=== PATIENT | male | born 1955 | race Caucasian/White ===

== ENCOUNTER 2022-07-02 06:57 | Observation (INO) ==
--- NOTE | 2022-06-11 09:04 | PAT Medication Instructions ---
Medication Instructions Date of Service June 11, 2022 Home Medications albuterol sulfate 90 mcg/actuation aerosol inhaler (Ventolin HFA) 2 puff inhalation QID PRN Shortness Of Breath amlodipine 10 mg tablet 10 mg PO QAM ascorbic acid (vitamin C) 500 mg tablet (Vitamin C) 500 mg PO QAM aspirin 81 mg capsule 81 mg PO QAM chlorthalidone 25 mg tablet 25 mg PO QAM cholecalciferol (vit D3) 5,500 unit-vit K2 200 mcg tablet 1 tab PO QAM ezetimibe 10 mg tablet (Zetia) 10 mg PO HS losartan 50 mg tablet 50 mg PO QAM omeprazole 20 mg tablet,delayed release 20 mg PO QAM potassium chloride 20 mEq oral packet 20 meq PO QAM umeclidinium 62.5 mcg-vilanterol 25 mcg/actuation powdr for inhalation (Anoro Ellipta) 1 inh inhalation QAM zinc 50 mg capsule 50 mg PO QAM DO NOT take the morning of surgery ascorbic acid (vitamin C) 500 mg tablet (Vitamin C) 500 mg PO QAM chlorthalidone 25 mg tablet 25 mg PO QAM cholecalciferol (vit D3) 5,500 unit-vit K2 200 mcg tablet 1 tab PO QAM losartan 50 mg tablet 50 mg PO QAM potassium chloride 20 mEq oral packet 20 meq PO QAM zinc 50 mg capsule 50 mg PO QAM Take morning of surgery With a small sip of water, OTHERWISE NOTHING TO EAT OR DRINK AFTER MIDNIGHT: albuterol sulfate 90 mcg/actuation aerosol inhaler (Ventolin HFA) 2 puff inhalation QID PRN Shortness Of Breath (use if needed; please bring rescue inhaler with you to hospital day of surgery if possible) amlodipine 10 mg tablet 10 mg PO QAM aspirin 81 mg capsule 81 mg PO QAM (continue as normal unless told otherwise by surgeon) omeprazole 20 mg tablet,delayed release 20 mg PO QAM umeclidinium 62.5 mcg-vilanterol 25 mcg/actuation powdr for inhalation (Anoro Ellipta) 1 inh inhalation QAM Take evening before surgery albuterol sulfate 90 mcg/actuation aerosol inhaler (Ventolin HFA) 2 puff inhalation QID PRN Shortness Of Breath (if needed) ezetimibe 10 mg tablet (Zetia) 10 mg PO HS Other Notes If you have any questions please call us at [phone] or [phone] or [phone] or [phone]
--- NOTE | 2022-06-16 08:48 | History & Physical Report ---
Date of Service June 16, 2022 date of surgery: 07/02/22 Procedure: Left Total Knee Arthroplasty Surgeon: Robby Ledesma Assessment & Plan (1) Arthritis of knee, left: Plan: Presents for preop evaluation prior to left total knee replacement, risk and benefits of the procedure discussed in detail he like to proceed with a left knee replacement. We will plan on overnight stay with discharge home with outpatient physical therapy. He did have issues with the oxycodone in the past and would prefer to use tramadol postoperatively. We will obtain medical clearance from prior to his surgery otherwise has no other questions or concerns. Placed on aspirin 81 mg twice a day for 1 month for DVT prophylaxis The risks and benefits have been discussed including, but not limited to, risk of infection, nerve injury, stiffness, loss of motion, failure to improve, etc. Reasonable outcomes and options of treatment were discussed. An explanation of appropriate alternatives to the procedure that may be advantageous were discussed and their risks and benefits, as well as the risks and benefits of not proceeding with treatment. I offered to answer any additional inquiries concerning the treatment involved. All the patient's questions were answered. The patient is agreeable, understanding of the treatment plan and alternatives, and wishes to proceed with the treatment plan. History of Present Illness Chief Complaint: left knee pain Primary Care Provider: ISABELLA PCP Jesse is a pleasant 67-year-old male who presents today for preop evaluation prior to his left total knee replacement. He states that he is been having pain in this knee for many years now which is gradually worsened to the point is affecting his daily activities including walking standing using stairs. He states he has a history of left knee arthroscopy x2 in the past as well as has had previous cortisone injection several years ago. He has pain, intermittent swelling as well as instability noted, rates his current pain as a 6 out of 10. At this point time is failed conservative measures and would like to proceed with a left knee replacement Allergies Allergy/AdvReac Type Severity Reaction Status Date / Time oxycodone Allergy breathing Verified 06/10/22 13:42 difficulty Home Medications Medication Instructions Recorded Confirmed Type albuterol sulfate 90 mcg/actuation 2 puff inhalation QID PRN 06/10/22 06/10/22 History aerosol inhaler (Ventolin HFA) Shortness Of Breath amlodipine 10 mg tablet 10 mg PO QAM 06/10/22 06/10/22 History ascorbic acid (vitamin C) 500 mg 500 mg PO QAM 06/10/22 06/10/22 History tablet (Vitamin C) aspirin 81 mg capsule 81 mg PO QA 06/10/22 06/10/22 History chlorthalidone 25 mg tablet 25 mg PO QAM 06/10/22 06/10/22 History cholecalciferol (vit D3) 5,500 1 tab PO QA 06/10/22 06/10/22 History unit-vit K2 200 mcg tablet ezetimibe 10 mg tablet (Zetia) 10 mg PO HS 06/10/22 06/10/22 History losartan 50 mg tablet 50 mg PO QA 06/10/22 06/10/22 History omeprazole 20 mg tablet,delayed 20 mg PO QA 06/10/22 06/10/22 History release potassium chloride 20 mEq oral 20 meq PO QAM 06/10/22 06/10/22 History packet umeclidinium 62.5 mcg-vilanterol 1 inh inhalation [facility] 06/10/22 06/10/22 History 25 mcg/actuation powdr for inhalation (Anoro Ellipta) zinc 50 mg capsule 50 mg PO QA 06/10/22 06/10/22 History Past Med/Surg History Medical History Hypertension Unspecified abnormalities of breathing "unspecified breathing disorder"; daily and prn inh; currently taking omeprazole as a preventative Viral illness 06/2022 fever, cough, fatigue, no covid testing to date Surgical History History of total right knee replacement Hx of colonoscopy Hx of laminectomy L2-S1 Social History Smoking Status: Former smoker Smoking End Date: 2001; Second Hand Exposure: Yes (growing up father smoked); Do You Dip or Chew Tobacco: No; Tobacco Cessation Education Requested by Patient: No Hx Alcohol Use: Yes Alcohol type: beer, wine and hard liquor Hx Substance Use: Yes Last Used Substance Other:: not for a long time Preferred Language: Yi Communication Ability: Effective Nail Maker Required: No Beliefs That Will Affect Care: None Current Living Situation: Significant Other Other Information That Helps Us Care for You: No Feels Safe at Home: Yes Safety Concerns: Feels Safe At This Time Assistive Devices: Glasses Review of Systems Review of Systems: All systems reviewed & are unremarkable except as noted in HPI & below Constitutional: no fever, no chills and no sweats Respiratory: no cough and no dyspnea Cardiovascular: no chest pain, no dyspnea and no orthopnea Gastrointestinal: no abdominal pain, no nausea and no vomiting Musculoskeletal: as per Subjective / HPI Physical Exam Physical Exam: HT: 6ft 1in WT: 108.86kg Constitutional: WD/WN, vitals as above no acute distress Respiratory: normal respiratory effort, lungs clear to auscultation no respiratory distress, no labored breathing and does not use accessory muscles Cardiovascular: RRR, no murmur, no edema Gastrointestinal (Abdomen): normal bowel sounds, soft, nontender, no hepatosplenomegaly Musculoskeletal: Knee: + knee abnormal to inspection (LEFT KNEE), + effusion (+1 effusion), + limited ROM of knee (ROM 0/3/110), + knee ROM with crepitation, + joint line tenderness (medial joint line) and + Yaniv's sign positive; no deformity, no skin erythema, no ecchymosis, no valgus laxity, no varus laxity, anterior drawer test negative, Ronel's sign negative and pivot shift test negative Results & Data Results & Data ([facility]) Diagnostic Findings Left Knee X-ray: left knee series confirm advanced degenerative changes to the left knee, greatest medial compartments and patellofemoral joint, showing joint space narrowing, osteophyte formation and subchondral sclerosis. no acute bony pathology noted.
--- NOTE | 2022-06-16 12:39 | Anesthesiology Consultation ---
Date of Service June 16, 2022 Assessment & Plan (1) Encounter for pre-operative examination: Chart Review Chart Review: Acceptable Risk for Surgery (pending PCP clearance/response to new onset DM ) and Patient seen in Pre Admission Testing - Awaiting PCP clearance scheduled 06/23/22 (will write note to PCP re: new onset DM). Pt and surgeon's office informed - Check BSG AM DOS Pt has had recollection during anesthesia/surgery with previous TKA- would not like to be aware during procedure -Due to unspecified breathing disorder- patient is not an ideal candidate for Same Day Joint program Per PAT appt on 06/16/22, patient denies any recent travel or large group activities. Pt had recent fever, cough, fatigue around 06/02/22- PCP aware- symptoms improving. Tested Covid positive 06/11/22 (will be 21 days from DOS). Pt can proceed without further Covid testing needed both preoperatively and DOS due to inpatient status. Pt is NOT vaccinated for Covid. Educated on importance of using Covid precautions one week prior to surgery Teaching & Discussion Pre-Anesthesia Teaching/Discussion Notes: Instructed NPO after midnight before surgery,except medications with 15 cc of water. Medication instructions provid ed according to the PAT guidelines. History Surgery Operation Date: 07/02/22 07:00 Proposed Procedures p Left Total Knee Arthroplasty - Robby Ledesma DO Height/Weight Height: 6 ft 1 in Weight: 108.4 kg Allergies Allergy/AdvReac Type Severity Reaction Status Date / Time oxycodone Allergy breathing Verified 06/10/22 13:42 difficulty Medications Home Medications Medication Instructions Recorded Confirmed Last Taken albuterol sulfate 90 mcg/actuation 2 puff inhalation QID PRN 06/10/22 06/10/22 Unknown aerosol inhaler (Ventolin HFA) Shortness Of Breath amlodipine 10 mg tablet 10 mg PO QAM 06/10/22 06/10/22 Unknown ascorbic acid (vitamin C) 500 mg 500 mg PO QAM 06/10/22 06/10/22 Unknown tablet (Vitamin C) aspirin 81 mg capsule 81 mg PO QAM 06/10/22 06/10/22 Unknown chlorthalidone 25 mg tablet 25 mg PO QAM 06/10/22 06/10/22 Unknown cholecalciferol (vit D3) 5,500 1 tab PO QAM 06/10/22 06/10/22 Unknown unit-vit K2 200 mcg tablet ezetimibe 10 mg tablet (Zetia) 10 mg PO HS 06/10/22 06/10/22 Unknown losartan 50 mg tablet 50 mg PO QAM 06/10/22 06/10/22 Unknown omeprazole 20 mg tablet,delayed 20 mg PO QAM 06/10/22 06/10/22 Unknown release potassium chloride 20 mEq oral 20 meq PO QAM 06/10/22 06/10/22 Unknown packet umeclidinium 62.5 mcg-vilanterol 1 inh inhalation QA 06/10/22 06/10/22 Unknown 25 mcg/actuation powdr for inhalation (Anoro Ellipta) zinc 50 mg capsule 50 mg PO QAM 06/10/22 06/10/22 Unknown Past Medical History Medical History Diabetes Pt unaware- noted on preop PAT testing 06/16/22- Hgb A1C 7.0 Hypertension Unspecified abnormalities of breathing "Unspecified breathing disorder"; follows with pulm in [facility]- Dr. Cottrell- daily and prn inh; currently taking omeprazole as a preventative Breathing stable Viral illness 06/2022 fever, cough, fatigue- tested Covid positive 06/11/22 Exercise / Class Metabolic Activity II 4-5 Yardwork/Stairs/Walk up hill (one flight of stairs - no chest pain or SOB) Past Surgical History Surgical History History of total right knee replacement Hx of colonoscopy Hx of laminectomy L2-S1 Past Anesthesia History No Hx of Anesthesia Complications and No Family Hx of Anesthesia Complications History of PONV No Hx of PONV and No Hx of Motion Sickness Social History Smoking Status: Former smoker tobacco type: cigarettes Do You Dip or Chew Tobacco: No Smoking End Date: 2001 Hx Alcohol Use: Yes Alcohol type: beer, wine and hard liquor alcohol intake frequency: 0-2 drinks per day Alcohol Intake Frequency Comment: 2-3 drinks/day Hx Substance Use: No substance use type: former substance user and marijuana Last Used Substance Other:: not for a long time Review of Systems Coughing,wheezing with URI- symptoms improving. Chronic MURPHY- stable Patient denies chest pain, shortness of breath at rest, reflux, palpitations. No hx of seizures, stroke, WI, apnea/snoring. No hx of blood clots or blood transfusions Physical Exam Vital Signs VITALS BP 126/66 P 74 TEMP 98.3 SP02 95% RESP 16 Constitutional no acute distress ENMT Mouth: no TMJ clicking Thyromental Distance: > or= 3.5 Finger Breadths (3.5) Mallampati Class: I Mouth / Teeth: 1. Missing Missing molars and side teeth Neck neck extension not limited Respiratory normal respiratory effort; no respiratory distress Auscultation: lungs clear to auscultation bilaterally; no wheezes Cardiovascular Rate/Rhythm: regular rate and regular rhythm Heart Sounds: no murmur Vessels: no carotid bruit Musculoskeletal Spine: no pain with cervical ROM Extremities: extremities normal to inspection Psychiatric Orientation: alert Lab Results Anesthesia Preop Results Results Anesthesia Widget: WBC 7.69 K/ul (4.8-10.8) 06/16/22 Hgb 14.2 g/dl (14.0-18.0) 06/16/22 Hct 41.1 % (42.0-52.0) L 06/16/22 Plt 221 K/uL (130-400) 06/16/22 Na 137 mmol/L (136-145) 06/16/22 K 3.4 mmol/L (3.5-5.1) L 06/16/22 Cl 98 mmol/L (98-107) 06/16/22 CO2 33 mmol/L (21-32) H 06/16/22 BUN 26 mg/dl (6-23) H 06/16/22 Creat 1.30 mg/dl (0.6-1.4) 06/16/22 Glucose Level 148 mg/dl (70-99(Fasting)) H 06/16/22 PT 10.9 Seconds (9.0-12.0) 06/16/22 PTT 26.8 Seconds (21.0-31.0) 06/16/22 INR 1.0 (0.9-1.1) 06/16/22 HA1c 7.0 % (4.5-5.6) H 06/16/22 Urine Color Dark Yellow 06/16/22 Urine Appearance Clear (Clear) 06/16/22 Urine pH 6.5 (4.5-7.5) 06/16/22 Urine Specific [place] 1.028 (1.000-1.030) 06/16/22 Urine Protein Negative (Negative) 06/16/22 Urine Glucose (UA) Negative (Negative) 06/16/22 Urine Ketones 1+ (Negative) H 06/16/22 Urine Blood Negative (Negative) 06/16/22 Urine Nitrite Negative (Negative) 06/16/22 Urine Bilirubin Negative (Negative) 06/16/22 Urine Urobilinogen Negative (Negative) 06/16/22 Urine Leukocyte Esterase Negative (Negative) 06/16/22 Blood Type A Positive 06/16/22 Antibody Screen NEGATIVE 06/16/22 Testing Electrocardiogram Date: 06/16/22 Findings: + NSR @ (76bpm ) Normal EKG per cardio Chest X-Ray Date: 06/11/22 Findings: + NAD 1 view CXR Echocardiogram Date: 07/15/19 EF: 55-60% LV Function: normal Other Findings: + LVH (Mild/concentric) Valvular Disease: + no significant valvular disease COVID-19 Risk Screen Screening Information COVID-19 Screen Date: 06/16/22 Exposure 21 Days Family/Household +COVID Last 21 Days: No Exposure 10 Days Any COVID Exposure Last 10 Days: No Symptoms Last 10 Days Experienced COVID Sx Last 10 Days: Yes Sx Experienced Last 10 Days: Cough, Fatigue and Fever or Chills Were You Tested for COVID: Yes Date and Place of Test: [facility] 06/11/22= positive for Covid Did You Notify Your Surgeon/PCP: Yes Did You Notify Your Surgeon/PCP Comment: Surgeon aware per patient Covid Sx 10 Day Pathway: If patient has symptoms, they should follow up with their PCP/surgeon to be COVID -19 tested and for further instructions related to their illness. Order COVID Testing COVID-19 Test Result pathway: * If the COVID Test is Negative, other risk factors are acceptable, and the patient is feeling well; proceed with procedure. * If the COVID-19 test is Positive: * Elective procedures will be cancelled/rescheduled per Policy 1096. * Urgent or Emergent procedures will need documentation that the procedure is medically necessary and precautions implemented per Policy 1096. Policies and Procedures Refer to Policy and Procedure 1096 for Initiation & Discontinuation of Transmission-Based Precautions for Confirmed and Suspected SARS-CoV-2 Infection which can be found on the Intranet in the Clinical Resources Manual by clicking on the link below: [email or web address] ion%[email or web address]#search=discontinuation%20of%20Transmission%2DBased + COVID 0-90 Days COVID + in Last 0-90 Days: Yes + COVID Test 0-10 Day: Yes Date/Place of COVID-19 Test: [facility] What were Your COVID-19 Symptoms: Fever, cough fatigue Currently Having Symptoms Related to COVID: Mild residual cough- much improved as of 06/16/22 +Covid 0-90 Day Pathway: Validate type of COVID-19 test (must secure test results for patient chart) * The patients test result MUST be a NAAT (i.e., molecular test not an antigen test). * NO other COVID-19 testing needed pre-op or day of surgery inside the 90 day window if prior positive test is acceptable per hospital Policy. Note: Home tests or antigen tests are NOT accepted per hospital policy. Provider to place an order for a LIAM (i.e., molecular test not an antigen test). Then proceed to the appropriate pathway based on the testing results. Elective Case +COVID-19 in the last 0-10 Days * Cancel/reschedule using Policy 1096. * Reschedule procedure 11 days if asymptomatic. * Reschedule procedure 15 days if mild symptoms. * Reschedule procedure 21 days if moderate to severe symptoms. Elective Case +COVID-19 in the last 11-90 Days * Proceed with procedure according to Policy 1096 * Reschedule procedure 11 days if asymptomatic. * Reschedule procedure 15 days if mild symptoms. * Reschedule procedure 21 days if moderate to severe symptoms. Urgent or Emergent Case * Provider will provide medical necessity statement in the H&P and patient will be scheduled on the (+) COVID/PUI pathway per hospital policy. Policies and Procedures Refer to Policy and Procedure 1096 for Initiation & Discontinuation of Transmission-Based Precautions for Confirmed and Suspected SARS-CoV-2 Infection which can be found on the Intranet in the Clinical Resources Manual by clicking on the link below: [email or web address] [email or web address] [email or web address] %[email or web address]#search=discontinuation%20of%20Transmission%2DBased Were You Hospitalized due to COVID-19 and Where: No COVID Testing Site COVID-19 Preop/Pre-Procedure Testing Site: [facility] (06/11/22 positive ) Risk Plan COVID Risk Plan: Last 10D +CoV Test Patient Education COVID Preop Screening Education Complete: Yes
[~2022-07-02 06:57] MED LIST: ACETAMINOPHEN 500 MG TAB PO SCH; BUPIVACAINE 0.25% 30 ML VIAL ONE; BUPIVACAINE 0.5 % 5 MG/1 ML PF 10ML VIAL ONE; CeleBREX 200 MG CAP PO SCH; FAMOTIDINE 20 MG TAB PO SCH; GABAPENTIN 300 MG CAP PO SCH; LR 500ML BOLUS, THEN 15ML/HR IV SCH; METOCLOPRAMIDE HCL 10 MG TABLET PO SCH; ROPIVACAINE 0.5% HCL/PF 150 MG, BUPIVACAINE 0.75% MPF 20 ML, EPINEPHrine 30MG/30ML (OR ... INSTIL SCH; TRANEXAMIC ACID 1,000 MG **IV Intra-op IV SCH; TRANEXAMIC ACID 1,000 MG **IV Pre-op IV SCH; ceFAZolin 2000MG 2,000 MG/15 ML SYR IV SCH; dexAMETHasone 4 MG TAB PO SCH
[2022-07-02] MEDS ORDERED: MIDAZOLAM HCL 1 MG/ML 2ML VIAL ONE ×2 (07:21→09:44)
[2022-07-02] MEDS ORDERED: fentaNYL citrate 100 MCG/2 ML VIAL ONE (07:21)
[2022-07-02] MEDS ORDERED: ePHEDrine sulfate 50 MG/ML AMP IV PRN (08:32)
[2022-07-02] MEDS ORDERED: fentaNYL citrate 100 MCG/2 ML VIAL IV PRN (08:32)
[2022-07-02] MEDS ORDERED: ATROPINE SULFATE 0.1 MG/ML 10ML SYR IV PRN (08:32)
[2022-07-02] MEDS ORDERED: ONDANSETRON INJ 2 MG/ML 2 ML VIAL IV PRN ×2 (08:32→12:17)
--- NOTE | 2022-07-02 08:44 | History & Physical Bridge Note ---
Date of Service July 02, 2022 History & Physical Bridge Note I have examined the patient, reviewed the History & Physical and in the interval since the performance of the History & Physical I have noted the following changes of clinical significance: no changes noted
[2022-07-02] MEDS ORDERED: ORTHO JOINT ANESTHETIC ONE (09:34)
[2022-07-02] MEDS ORDERED: PROPOFOL IV EMULSION 10 MG/ML 20 ML VIAL IV ONE ×2 (09:44→10:48)
--- NOTE | 2022-07-02 10:54 | Operative Report ---
Post Operative Report Pre & Post Diagnosis Operation Date: 07/02/22 09:20 Pre-Op Diagnosis: Left Knee Osteoarthritis Post-Op Diagnosis: Left Knee Osteoarthritis I identified the patient and participated in the time-out.: Yes Procedure Operation Date: 07/02/22 09:20 Actual Procedures p Left Total Knee Arthroplasty, Cemented utilizing [employer] journey 2 patient matched size femur 7 tibia 7 poly 13 patella 38 rodri Ledesma DO Surgeon Robby Ledesma DO Protective Service Specialist EARLE Costello Estimated Blood Loss 5 Findings Consistent with Post-Op Diagnosis Patient presents with severe end-stage tricompartmental DJD left knee no response to conservative management patient has eburnated [id number] 10 degree flexion contracture varus alignment subchondral sclerosis marginal osteophytes moderate to large effusion Specimens Bone card Drains Medium bore Hemovac Anesthesia Type MAC Spinal Regional Complications none Disposition Accompanied Patient To Recovery: No Disposition: Recovery Room Indications Patient has after failed attempted conservative management occluding physical therapy anti-inflammatories relative rest activity modification corticosteroid injection viscosupplementation Description of Procedure After proper prepping and draping of the left lower extremity anterior midline incision was made over the region of the extensor extensor mechanism after meticulous hemostasis was obtained and maintained in subcutaneous tissues a medial parapatellar incision was made The patella was subluxed lateralward the medial lateral gutter were cleaned from any hypertrophic synovitis and scar tissue of the distal femoral block was placed and the distal femoral osteotomy cut was made subsequently the chamfers anterior and posterior osteotomy cuts were made utilizing the 4-in-1 block the tibia was subsequently subluxed anteriorward medial and ateral meniscal remnants were excised in their entirety remnants of the anterior and posterior cruciate ligaments were excised in their entirety excellent exposure of the proximal tibia was obtained the tibial osteotomy guide was placed on the proximal tibial osteotomy cut was made once again the knee was irrigated with copious amounts of sterile saline solution the patella was subsequently everted lateralward thickened scar tissue around the patella was removed the patella was subsequently cut utilizing a freehand technique and was drilled prepared for final preparation and placement of patella socially flexion-extension gaps were checked and the equal and symmetric trials were placed to the appropriate femoral and tibial trials with poly-spacer being placed for equal flexion and extension gaps and full range of motion including extension to 0 and flexion to 140 the trial components after having been taken to recovery range of motion was subsequently removed meticulous hemostasis was obtained and maintained subsequently a knee block injection of joint cocktail including ropivacaine 0.5% 150 mg. Bupivacaine 0.5% epinephrine 1-200,030 mL's toradol 30 mg dexamethasone 4 mg ketamine 10 mg clonidine 100 micrograms normal saline solution 30 mg was infiltrated into the soft tissues of the posterior knee medial lateral gutters and periosteal synovium special attention was paid to protect neurovascular structures at all times subsequently trial components having been removed the knee was irrigated with sterile saline solution. debris was removed the proximal tibia was subsequently prepared and was made ready for the placement of the tibial component tibial component was also cemented and tamped into position the femoral component was subsequently placed and cemented in the position the patellar component was subsequently cemented in position because hemostasis once again obtained and maintained wound having been thoroughly irrigated with debridement and debridement lavage was performed as well as a medial parapatellar incision closed with #1 Vicryl in interrupted fashion subcutaneous was closed with #2 Vicryl skin was closed with skin clips. PA-C was necessary for prepping and drapping as well as wound closure of deep fascia Sub cutaneous tissue and skin and was necessary for the case. A sterile compressive dressing was placed patient was taken to recovery in stable condition of report dictated by Baltazar I attest to the content of the Intraoperative Record and any orders documented therein. Any exceptions are noted below.Due to the complex nature of the procedure, the entire surgery was performed with the operational assistance of EARLE Costello. The assistant winemaker, under direct supervision, was involved in the actual performance of all aspects of the surgical procedure including hemostasis, tissue retraction and incision, instrument management, patient positioning, and wound closure. I attest to the content of the Intraoperative Record and any orders documented therein. Any exceptions are noted below.
[2022-07-02] MEDS ORDERED: NALOXONE HCL 0.4 MG/1 ML VIAL/CARP IV PRN (12:17)
[2022-07-02] MEDS ORDERED: MAGNESIUM HYDROXIDE SUSP 30 ML UDC PO PRN (12:17)
[2022-07-02] MEDS ORDERED: METOCLOPRAMIDE HCL INJ 5 MG/ML 2 ML VIAL IV PRN (12:17)
[2022-07-02] MEDS ORDERED: diphenhydrAMINE Capsule 25 MG CAP PO PRN (12:17)
[2022-07-02] MEDS ORDERED: HYDROmorphone INJ 1 MG/ML SYRINGE IV PRN (12:17)
[2022-07-02] MEDS ORDERED: bisacodyL 10 MG SUPP PR PRN (12:17)
[2022-07-02] MEDS ORDERED: ALBUTEROL HFA 8 GM INHALER INH PRN (12:17)
--- NOTE | 2022-07-02 12:30 | XRay Report ---
XR knee LT 1 or 2V routine HISTORY: 67 years-old Male Surgical Post Op left knee total joint arthroplasty COMPARISON: 09/14/2012 TECHNIQUE: 2 views of the left knee FINDINGS: Total joint arthroplasty with patellar resurfacing. Surgical drainage catheter is in place. Expected postoperative soft tissue swelling with deep tissue air. No acute fracture, dislocation or opaque for eign body. Arterial calcifications. IMPRESSION: Total joint arthroplasty with expected postoperative changes. ACT 112: Negative or not required by law. The above report was generated using voice recognition software. It may contain grammatical, syntax o r spelling errors. Electronically signed by: Quirino Chamorro M.D. 07/02/2022 12:29 PM
[2022-07-02] MEDS: SODIUM CHLORIDE 0.9% 1000ML 1,000 ML IV SCH (14:58)
[2022-07-02] MEDS: KETOROLAC TROMETHAMINE 15 MG/ML VIAL IV SCH ×2 (14:58→17:51)
[2022-07-02] MEDS: ACETAMINOPHEN 500 MG TAB PO SCH ×2 (14:58→20:50)
--- NOTE | 2022-07-02 15:34 | Anesthesiology Progress Note ---
Date of Service July 02, 2022 Anesthesia Post Procedure Vital Signs Vital Signs: Temp Pulse Pulse Resp BP Pulse Ox O2 Del Method 07/02/22 14:21 36.8 C 90 18 128/70 94 Room Air 07/02/22 14:00 83 16 125/72 95 Room Air 07/02/22 13:30 84 16 121/61 95 Room Air 07/02/22 13:00 84 14 104/86 95 Room Air 07/02/22 12:30 83 16 141/89 H 95 Room Air 07/02/22 12:15 77 12 126/88 97 Room Air 07/02/22 12:00 76 15 134/63 96 Room Air 07/02/22 11:50 77 19 121/64 92 Room Air 07/02/22 11:40 36.4 C L 77 15 130/64 100 Oxymask 07/02/22 11:30 78 19 127/66 100 Oxymask 07/02/22 11:23 36.3 C L 80 19 116/63 96 Oxymask 07/02/22 07:26 36.8 C 79 20 141/81 H 95 Room Air O2 Flow Rate 07/02/22 14:21 07/02/22 14:00 07/02/22 13:30 07/02/22 13:00 07/02/22 12:30 07/02/22 12:15 07/02/22 12:00 07/02/22 11:50 07/02/22 11:40 8 07/02/22 11:30 8 07/02/22 11:23 8 07/02/22 07:26 Pain Intensity Bilateral Knee: Pain Intensity: 3 Transfer of Care Handoff Completed per policy Notes Mental Status: alert / awake / arousable and participated in evaluation Patient Amnestic to Procedure: Yes Nausea / Vomiting: adequately controlled Pain: adequately controlled Airway Patency, RR, SpO2: stable & adequate BP & HR: stable & adequate Hydration State: stable & adequate Neuraxial Anesthesia: was administered and sensory block is resolving Anesthetic Complications: no major complications apparent and Pt Satisfied with anesthetic care
[2022-07-02] MEDS: ceFAZolin 2000MG 2,000 MG/15 ML SYR IV SCH (17:31)
[2022-07-02] MEDS: DOCUSATE SODIUM 100 MG CAP PO SCH (20:50)
[2022-07-02] MEDS: ASPIRIN 81 MG ECTAB PO SCH (20:50)
[2022-07-02] MEDS ORDERED: SENNA 8.6 MG TAB PO SCH (21:00)
[2022-07-02] MEDS ORDERED: EZETIMIBE 10 MG TABLET PO SCH (21:00)
[2022-07-02] MEDS: traMADol HCL 50 MG TABLET PO PRN (22:16)
[2022-07-03] MEDS: KETOROLAC TROMETHAMINE 15 MG/ML VIAL IV SCH ×2 (00:54→05:55)
[2022-07-03] MEDS: ceFAZolin 2000MG 2,000 MG/15 ML SYR IV SCH (00:54)
[2022-07-03] MEDS: SODIUM CHLORIDE 0.9% 1000ML 1,000 ML IV SCH (01:13)
[2022-07-03] MEDS: ACETAMINOPHEN 500 MG TAB PO SCH ×2 (05:55→13:00)
--- NOTE | 2022-07-03 07:14 | Discharge Summary ---
Date of Service date of discharge: July 03, 2022 date of admission: 07-02-22 Admission HPI Per Admitting Provider Jesse is a pleasant 67-year-old male who presents today for preop evaluation prior to his left total knee replacement. He states that he is been having pain in this knee for many years now which is gradually worsened to the point is affecting his daily activities including walking standing using stairs. He states he has a history of left knee arthroscopy x2 in the past as well as has had previous cortisone injection several years ago. He has pain, intermittent swelling as well as instability noted, rates his current pain as a 6 out of 10. At this point time is failed conservative measures and would like to proceed with a left knee replacement Principal Diagnosis left knee osteoarthritis Discharge Exam Vital Signs Temp 36.6 C 07/03/22 03:14 Pulse 74 07/03/22 03:14 Resp 15 07/03/22 03:14 BP 150/78 H 07/03/22 03:14 Pulse Ox 95 07/03/22 03:14 O2 Del Method Room Air 07/03/22 03:14 O2 Flow Rate 8 07/02/22 11:40 Intake & Output 07/02/22 07/03/22 07/03/22 18:59 06:59 18:59 Intake Total 1300 / 3450 2150 / 3450 Output Total 435 / 1835 1400 / 1835 Balance 865 / 1615 750 / 1615 Weight 107.161 kg Intake: IV 200 / 1200 1000 / 1200 Lactated Ringer's 1,000 ml @ 15 0 / 0 mls/hr IV .Q24H NORM Rx#: [id number] Sodium Chloride 0.9% 1000ML 1, 1000 / 1000 000 ml @ 100 mls/hr IV .Q10H NORM Rx#:[id number] Tranexamic Acid / 0.7% NaCl 1, 200 / 200 000 mg In 100 ml @ 600 mls/hr IV TODAY@0600 NORM Rx#:[id number] IV Perioperative 1100 / 1100 Oral 1150 / 1150 Output: Urine 400 / 1600 1200 / 1600 Estimated Blood Loss 5 / 5 Drain Output 30 / 230 200 / 230 Left Knee Hemovac 30 / 230 200 / 230 Other: # Unmeasured Voids 1 Weight Measurement Method Standing Scale Musculoskeletal left knee: NVDI, calf SNT, negative juancarlos sign. DP palpable, able to wiggle toes/ankle movement without difficulty. JAKUB dressing clean dry and intact. Discharge Data Allergies Allergy/AdvReac Type Severity Reaction Status Date / Time oxycodone Allergy breathing Verified 06/10/22 13:42 difficulty Procedures Performed Operation Date: 07/02/22 09:20 Actual Procedures p Left Total Knee Arthroplasty, Cemented(Left) - Robby Schwartz DO Ordered Studies 07/02/22 05:00 US - OR guided needle placemen Routine Hospital Course (1) History of total left knee replacement: POD #1 s/p left TKA pt/ot dvt proph with DARIUS/SCD/ASA plan for d/c home with HHPT Total Time Total Time Spent Total Time Spent (In Minutes): 20 Discharge Plan Discharge Items Patient Disposition: Home - Home Health Services Reason For Visit: Left Knee Osteoarthritis Discharge Diagnosis: left total knee replacement Activity: Per Instructions section Lifting: Wait until after follow-up appointment Weightbearing Comment: WBAT with walker Non-emergency contact: Surgeon Call non-emergency contact if: you have any medication questions, your temperature is above 101, your wound has increased redness, your wound has increased drainage and your wound pain has increased Follow-up/Referrals: Robby Lake, D.O. [Primary Care Provider] - Diet: Regular Addtl Attending Provider Instructions: ACTIVITY RECOMMENDATIONS: SELF CARE INSTRUCTIONS AFTER TOTAL KNEE REPLACEMENT A. You may need to continue a physical therapy program after discharge from the hospital. There are several options available to you. Your doctor will assist you in selecting the best one for you. 1. An out-patient facility 2 to 3 times a week for therapy or home therapy. 2. Continue working on all exercises taught to you in the hospital. Your goals should be to increase bending of your knee to 90 degrees and beyond and to fully straighten your knee. B. You may progress at your own pace from walking with a walker or crutches to a cane; then to no assistive devices. C. Make walking a part of your daily routine. Be up as much as comfortable with rest periods throughout the day. Rest with leg elevation is very important. Use the ice wrap frequently for the first 3-4 weeks. D. There are no restrictions on activities. You may ride in a car, shop, participate in bundle shaker and all social activities. E. Wear the long elastic stockings (DARIUS hose) 20 hours a day for 2 weeks after surgery. They can be removed several times a day for laundering and for a bath. F. You may shower, no tub baths until cleared by your doctor. SPECIAL CARE INSTRUCTIONS: VERY IMPORTANT TO READ AND REVIEW A. There are a few signs you need to watch for after you are home. Call [facility] [place] if you notice any of the followin. Increased severe knee pain. Some pain is expected especially when you exercise. 2. Increased swelling in your leg or knee; pain or swelling of the calf muscle in either lower leg. 3. Any fluid drainage from the incision. 4. Shortness of breath or chest pain. B. Please call [facility] at if you have any concerns or questions about your operation or recovery. The doctor or his nurse will return your call promptly. C. You must take antibiotics before dental work, bladder, bowel or other surger y. Your doctor will provide you with a permanent care to carry describing this precaution. IMPORTANT: * REMEMBER TO TAKE ASPIRIN, 81 MG, TWICE DAILY FOR 4 WEEKS UNLESS OTHERWISE DIRECTED. THIS IS YOUR BLOOD THINNER. * HIGH RISK PATIENTS MAY BE PRESCRIBED A STRONGER BLOOD THINNER. THIS WILL BE PROVIDED AT DISCHARGE. * CALL IF INCREASED PAIN, REDNESS, DRAINAGE OR FEVER GREATER THAT 101. * WEAR DARIUS HOSE 20 HOURS PER DAY FOR 2 WEEKS. * DRESSING INSTRUCTIONS * JAKUB Dressing- This is a large suction dressing covering your incision. This will help pull any excess drainage from the wound and allow your incision to heal properly. You may shower with this if you can keep the unit outside of the shower. If any bleeding or leakage is noted please call your doctor's office. This will remain on your incision for 7 days and then should be removed. This can be done yourself or by the home nursing staff if applicable. The entire unit is disposable once removed. Once removed, keep incision clean and dry. If redness or drainage is noted, please call your surgeon. ONCE JAKUB IS REMOVED, FOLLOW THESE INSTRUCTIONS: DERMABOND Prineo- This is a mesh tape dressing that is covered with glue. It should remain in place until the incision is properly healed, usually 10-14 days. This dressing is designed to naturally slough off. You may trim the excess mesh tape as it peels off. Incision may be briefly wet in a shower. Dry immediately by blotting with a clean, dry towel. Do not bath or swim until instructed by your doctor. Do not scratch, rub, or pick at the dressing. Do not apply any topical ointments or lotions until dressing is completely removed and/or instructed by your doctor. There may be a small piece of suture material at one end of your incision. Do not pull or trim this. If it is bothersome or catching on clothing, you may cover it with a band-aid. IF INCISION IS LEAKING THROUGH DRESSING, CALL THE OFFICE . FOLLOW UP VISIT: If appointment is not already scheduled: Please call [facility] [place] to make a follow-up appointment for 2 weeks after your surgery at . Pending Studies at Discharge: No Stand-Alone Forms: My [facility] Medications and DC Order Prescriptions: New celecoxib [Celebrex] 200 mg Capsule 200 mg PO BID 30 Days Qty: 60 0RF aspirin 81 mg Tablet,Delayed Release (Dr/Ec) 81 mg PO BID 30 Days Qty: 60 0RF tramadol 50 mg Tablet 50 - 100 mg PO Q6H PRN (Reason: pain) Qty: 30 0RF Rx Instructions: ongoing therapy, supervising dr cinthya schwartz. max 6 tabs in 24 hours acetaminophen [Tylenol Extra Strength] 500 mg Tablet 1,000 mg PO Q8 21 Days Qty: 126 0RF docusate sodium 100 mg Capsule 100 mg PO BID 10 Days Qty: 20 0RF cefadroxil 500 mg capsule 500 mg PO BID 14 Days Qty: 28 0RF Continued losartan 50 mg Tablet 50 mg PO QAM chlorthalidone 25 mg Tablet 25 mg PO QAM potassium chloride 20 mEq Packet 20 meq PO QAM ascorbic acid (vitamin C) [Vitamin C] 500 mg Tablet 500 mg PO QAM amlodipine 10 mg Tablet 10 mg PO QAM albuterol sulfate [Ventolin HFA] 90 mcg/actuation Hfa Aerosol Inhaler 2 puff INHALATION QID PRN (Reason: Shortness Of Breath) ezetimibe [Zetia] 10 mg Tablet 10 mg PO HS zinc 50 mg Capsule 50 mg PO QAM omeprazole 20 mg Tablet,Delayed Release (Dr/Ec) 20 mg PO QAM Anoro Ellipta 62.5-25 mcg/actuation Blister With Device 1 inh INHALATION QAM vitamin D3-vitamin K2 5,500-200 unit-mcg Tablet 1 tab PO QAM Discontinued aspirin 81 mg Capsule 81 mg PO QAM Admission Data Admit Date/Time: 07/02/22 11:28 Attending Provider: Robby Schwartz Admit Provider: Robby Schwartz Primary Care Provider: Robby Lake
--- NOTE | 2022-07-03 07:36 | Orthopedic Progress Note ---
Date of Service July 03, 2022 Assessment & Plan (1) History of total left knee replacement: Plan: POD #1 s/p left TKA -PT/OT -dvt proph with DARIUS leung,SCDs, and ASA -Pain regime as written -Remove drain prior to d/c -Plan for d/c home today with home health Admission and Anticipated Discharge Date Admission Date: July 02, 2022 Subjective Pt is POD#1 s/p Left TKA. Doing well this morning, states pain is well controlled on current regime. Denies CP, SOB, fevers or chills Has been able to ambulate with his walker in room without issue. Review of Systems Constitutional: no fever, no chills and no body aches Respiratory: no cough, no dyspnea and no problem reported Cardiovascular: no chest pain, no dyspnea and no syncope Gastrointestinal: no abdominal pain, no nausea and no vomiting Physical Exam Physical Exam: LLE with dressing and drain in place and is c/d/i. Able to wiggle toes and full ROM of left ankle without issue, nontender to left calf and compartments are soft, palpable pulses, NVI. Results & Data ([facility]) Vital Signs (Past 12 Hours) Vital Signs Temp Pulse Resp BP Pulse Ox O2 Del Method 07/03/22 03:14 36.6 C 74 15 150/78 H 95 Room Air 07/02/22 23:42 36.6 C 84 15 131/66 97 Room Air Laboratory Results Laboratory Results POC Glucose 142 mg/dl (70-99) H 07/02/22 11:25 Impressions Knee X-Ray 07/02/22 11:28 XR knee LT 1 or 2V routine HISTORY: 67 years-old Male Surgical Post Op left knee total joint arthroplasty COMPARISON: 09/14/2012 TECHNIQUE: 2 views of the left knee FINDINGS: Total joint arthroplasty with patellar resurfacing. Surgical drainage catheter is in place. Expected postoperative soft tissue swelling with deep tissue air. No acute fracture, dislocation or opaque foreign body. Arterial calcifications. IMPRESSION: Total joint arthroplasty with expected postoperative changes.
[2022-07-03 08:01] LABS: Hematocrit (blood only) 34.1 % (42.0-52.0); Hemoglobin 11.8 g/dl (14.0-18.0); Mean Corpuscular Hemoglobin 31.1 pg (25.0-34.0); Mean Corpuscular Hgb Conc 34.6 g/dL (32.0-36.0); Mean Platelet Volume 12.4 fL (9.4-12.4); Platelet Count 191 K/uL (130-400); RDW Coefficient of Variation 13.1 % (11.5-14.5); RDW Standard Deviation 42.5 fL (36.4-46.3); Red Blood Count 3.79 M/uL (4.70-6.10); White Blood Count 15.45 K/ul (4.8-10.8)
[2022-07-03 08:12] LABS: BUN Creatinine Ratio 24.3 (10-20); Creatinine Clr Calc Pharmacy 81.2 ml/min; Est GFR (African American) 76.4 ml/min; Est GFR (Non-African American) 65.9 ml/min; Potassium 3.4 mmol/L (3.5-5.1)
[2022-07-03] MEDS: ASPIRIN 81 MG ECTAB PO SCH (08:47)
[2022-07-03] MEDS: DOCUSATE SODIUM 100 MG CAP PO SCH (08:47)
[2022-07-03] MEDS: traMADol HCL 50 MG TABLET PO PRN ×2 (08:57→12:58)
[2022-07-03] MEDS ORDERED: CHLORTHALIDONE 25 MG TAB PO SCH (09:00)
[2022-07-03] MEDS ORDERED: LOSARTAN POTASSIUM 50 MG TAB PO SCH (09:00)
[2022-07-03] MEDS ORDERED: amLODIPine BESYLATE 5 MG TAB PO SCH (09:00)
[2022-07-03] MEDS ORDERED: NON-FORMULARY MEDICATION (Zinc 50 mg Capsule) PO SCH (09:00)
[2022-07-03] MEDS ORDERED: POTASSIUM CHLORIDE PWD 20 MEQ PACK PO SCH (09:00)
[2022-07-03] MEDS ORDERED: MULTIVITAMIN TAB PO SCH (09:00)
[2022-07-03] MEDS ORDERED: ASCORBIC ACID 500 MG TAB PO SCH (09:00)
[2022-07-03] MEDS ORDERED: VITAMIN D3 VITAMIN K2 PO SCH (09:00)
[2022-07-03] MEDS ORDERED: UMECLIDINIUM/VILANTEROL 62.5/25MCG 7 PUFFS/INHALER INH SCH (09:00)
[2022-07-03] MEDS ORDERED: CeleBREX 200 MG CAP PO SCH (21:00)
== END 2022-07-03 13:08 | disposition home health service (06) ==
LOC: 3N 06:57 → ASU 06:57